=== PATIENT | female | born 1955 | race African-American/Black ===

== ENCOUNTER 2016-07-24 14:59 | Emergency (ER) | payer BC ==
[~2016-07-24] VITALS: Ht 162.6 cm; Wt 79.4 kg
[~2016-07-24 14:59] MED LIST: CALC-98 PO; LEVO50TA PO
[2016-07-24] MEDS ORDERED: IV NORMAL SALINE 500ML BAG 500 ML IV ONE (16:00)
--- NOTE | 2016-07-24 16:05 | PHYS DOC ---
Past Medical History Past Medical History: Hypothyroid Past Surgical History: Tubal ligation Alcohol Use: None Drug Use: None Adult General Chief Complaint Chief Complaint: OTHER COMPLAINTS HPI HPI Patient is a 61 year old female who presents with complaint of extremity heaviness and racing heartbeat. Patient states that the extremity heaviness has been going on for the past 2 days. Patient states that she feels numbness and heaviness in her bilateral forearms and in her left lower extremity. Patient states that currently the symptoms have resolved. Patient states that approximately 1 hour prior to arrival while she was walking she suddenly felt like she was having a very fast heart rate. The patient came to the emergency department for evaluation. Patient denies any pain. The patient is not having any fevers or shortness of breath and denies nausea or vomiting. Patient denies any previous history of similar symptoms. Patient has not taken any medications for her symptoms. Patient has history of hypothyroidism. Patient denies any other significant past medical history. Review of Systems Review of Systems Constitutional: Denies fever or chills [] Eyes: Denies change in visual acuity, redness, or eye pain [] HENT: Denies nasal congestion or sore throat [] Respiratory: Denies cough or shortness of breath [] Cardiovascular: Fast heart rate, denies chest pain [] GI: Denies abdominal pain, nausea, vomiting, bloody stools or diarrhea [] : Denies dysuria or hematuria [] Musculoskeletal: Denies back pain or joint pain [] Integument: Denies rash or skin lesions [] Neurologic: "Extremity heaviness," Denies headache, focal weakness [] Endocrine: Denies polyuria or polydipsia [] Current Medications Current Medications Current Medications Medications (Trade) Dose Ordered Sig/Shilo Start Time Stop Time Status Last Admin Dose Admin Sodium Chloride (Iv Sodium Chloride 0.9% 500ml Bag) 500 ml @ 500 mls/hr 1X ONCE 07/24/16 16:00 07/24/16 16:59 DC 07/24/16 16:24 500 MLS/HR Allergies Allergies Allergies Coded Allergies Type Severity Reaction Last Updated Verified clindamycin Allergy Intermediate Itching 07/24/16 Yes fluticasone Allergy Intermediate Itching 07/24/16 Yes Physical Exam Physical Exam Constitutional: Well developed, well nourished, no acute distress, non-toxic appearance. [] HENT: Normocephalic, atraumatic, bilateral external ears normal, oropharynx moist, no oral exudates, nose normal. [] Eyes: PERRLA, EOMI, conjunctiva normal, no discharge. [] Neck: Normal range of motion, no tenderness, supple, no stridor. [] Cardiovascular:Heart rate regular rhythm, no murmur [] Lungs & Thorax: Bilateral breath sounds clear to auscultation [] Abdomen: Bowel sounds normal, soft, no tenderness, no masses, no pulsatile masses. [] Skin: Warm, dry, no erythema, no rash. [] Back: No tenderness, no CVA tenderness. [] Extremities: No tenderness, no cyanosis, no clubbing, ROM intact, no edema. [] Neurologic: Alert and oriented X 3, normal motor function, normal sensory function, no focal deficits noted. [] Current Patient Data Vital Signs Vital Signs Date Time Temp Pulse Resp B/P Pulse Ox O2 Delivery O2 Flow Rate FiO2 07/24/16 18:48 72 18 118/76 97 Room Air 07/24/16 15:22 97.8 97.8 Lab Values Laboratory Tests Test 07/24/16 15:34 07/24/16 16:02 White Blood Count 4.4x10^3/uL (4.0-11.0) Red Blood Count 3.46x10^6/uL (3.50-5.40) L Hemoglobin 10.9g/dL (12.0-15.5) L Hematocrit 33.0% (36.0-47.0) L Mean Corpuscular Volume 95fL (79-100) Mean Corpuscular Hemoglobin 31pg (25-35) Mean Corpuscular Hemoglobin Concent 33g/dL (31-37) Red Cell Distribution Width 13.0% (11.5-14.5) Platelet Count 194x10^3/uL (140-400) Neutrophils (%) (Auto) 43% (31-73) Lymphocytes (%) (Auto) 47% (24-48) Monocytes (%) (Auto) 9% (0-9) Eosinophils (%) (Auto) 1% (0-3) Basophils (%) (Auto) 1% (0-3) Neutrophils # (Auto) 1.9x10^3uL (1.8-7.7) Lymphocytes # (Auto) 2.1x10^3/uL (1.0-4.8) Monocytes # (Auto) 0.4x10^3/uL (0.0-1.1) Eosinophils # (Auto) 0.0x10^3/uL (0.0-0.7) Basophils # (Auto) 0.0x10^3/uL (0.0-0.2) Sodium Level 146mmol/L (136-145) H Potassium Level 3.4mmol/L (3.5-5.1) L Chloride Level 108mmol/L (98-107) H Carbon Dioxide Level 32mmol/L (21-32) Anion Gap 6 (6-14) Blood Urea Nitrogen 11mg/dL (7-20) Creatinine 0.9mg/dL (0.6-1.0) Estimated GFR (Cockcroft-Gault) 77.3 Glucose Level 84mg/dL (70-99) Calcium Level 9.0mg/dL (8.5-10.1) Magnesium Level 2.0mg/dL (1.8-2.4) Urine Collection Type Unknown Urine Color Yellow Urine Clarity Clear Urine pH 7.0 Urine Specific [place] <=1.005 Urine Protein Negativemg/dL (NEG-TRACE) Urine Glucose (UA) Negativemg/dL (NEG) Urine Ketones (Stick) Negativemg/dL (NEG) Urine Blood Negative (NEG) Urine Nitrite Negative (NEG) Urine Bilirubin Negative (NEG) Urine Urobilinogen Dipstick 0.2mg/dL (0.2 mg/dL) Urine Leukocyte Esterase Negative (NEG) Urine RBC 0/HPF (0-2) Urine WBC 0/HPF (0-4) Urine Squamous Epithelial Cells Few/LPF Urine Bacteria 0/HPF (0-FEW) Laboratory Tests 07/24/16 15:34 Laboratory Tests 07/24/16 15:34 EKG EKG Interpreted by me: Heart rate 65, sinus rhythm, normal intervals, normal axis, no acute ST/T-wave abnormalities present [] Radiology/Procedures Radiology/Procedures Not performed [] Course & Med Decision Making Course & Med Decision Making Pertinent Labs and Imaging studies reviewed. (See chart for details) Patient was given IV fluids in the emergency department. Patient did not display any evidence of ectopy or dysrhythmia while in the emergency department. The patient's symptoms do not appear life-threatening at this time. I did recommend follow-up with Dr. Franz of cardiology in the next 3-5 days for reevaluation. Advised return emergency department for any worsening symptoms. Patient voiced understanding and in agreement with treatment plan. Dragon Disclaimer Dragon Disclaimer This electronic medical record was generated, in whole or in part, using a voice recognition dictation system. Departure Departure Impression: Primary Impression: Dehydration Disposition: 01 HOME, SELF-CARE Condition: IMPROVED Referrals: SERJIO ALVARADO MD (PCP) CESARIO FRANZ MD Patient Instructions: Dehydration, Adult Additional Instructions: Your workup today did not show any life-threatening causes for your symptoms. You were treated for dehydration. It is recommended however that you follow-up with Dr. Franz of cardiology in the next 3-5 days for further evaluation. If you experience any recurrence of symptoms including fast heart rate, or you develop chest pain, shortness of breath, nausea, or vomiting, please return to the emergency department for reevaluation. CAMERON CALDWELL MD Jul 24, 2016 16:05
--- NOTE | 2016-07-24 16:06 | EKG ---
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
[2016-07-24 16:40] LABS: BASO % 1 % (0-3); EOS % 1 % (0-3); HEMOGLOBIN 10.9 g/dL (12.0-15.5); LYMPH # 2.1 x10^3/uL (1.0-4.8); LYMPH % 47 % (24-48); MEAN CORPUSCULAR HEMOGLOBIN 31 pg (25-35); MEAN CORPUSCULAR HGB CONC 33 g/dL (31-37); MEAN CORPUSCULAR VOLUME 95 fL (79-100); MONO % 9 % (0-9); NEUT % 43 % (31-73); PLATELET COUNT 194 x10^3/uL (140-400); RED BLOOD COUNT 3.46 x10^6/uL (3.50-5.40); WHITE BLOOD COUNT 4.4 x10^3/uL (4.0-11.0)
[2016-07-24 16:47] LABS: CREATININE 0.9 mg/dL (0.6-1.0); GFR 77.3; POTASSIUM 3.4 mmol/L (3.5-5.1)
[2016-07-24 17:15] LABS: BILIRUBIN,URINE NEGATIVE (NEG); GLUCOSE,URINE NEGATIVE (NEG); NITRITE,URINE NEGATIVE (NEG); PROTEIN,URINE NEGATIVE (NEG-TRACE); UROBILINOGEN,URINE 0.2 mg/dL (0.2 mg/dL)
[2016-07-24 18:23] LABS: BACTERIA,URINE 0 /HPF (0-FEW); RBC,URINE 0 /HPF (0-2); SQUAMOUS EPITHELIAL CELL,UR FEW /LPF; WBC,URINE 0 /HPF (0-4)
[2016-07-24 18:48] VITALS: BP 118/76
== END 2016-07-24 18:55 | disposition home or self-care (01) ==
LOC: ER 14:59
DX: E86.0 Dehydration (principal); R00.0 Tachycardia, unspecified; E03.9 Hypothyroidism, unspecified; Z98.51 Tubal ligation status; Z88.1 Allergy status to other antibiotic agents; Z88.8 Allergy status to other drugs, medicaments and biological substances
CPT/HCPCS: 36415; 80048; 81001; 83735; 85027; 93005; 96360; 99285; J7040

== ENCOUNTER 2017-07-27 14:57 | Emergency (ER) | payer OTHER ==
[2017-07-27 15:21] LABS: ADD MAN DIFF? NO
[2017-07-27 15:31] LABS: BASO # 0.1 x10^3/uL (0.0-0.2); BASO % 1 % (0-3); EOS % 1 % (0-3); HEMATOCRIT 36.2 % (36.0-47.0); HEMOGLOBIN 12.1 g/dL (12.0-15.5); LYMPH # 2.8 x10^3/uL (1.0-4.8); LYMPH % 41 % (24-48); MEAN CORPUSCULAR HEMOGLOBIN 32 pg (25-35); MEAN CORPUSCULAR HGB CONC 34 g/dL (31-37); MEAN CORPUSCULAR VOLUME 96 fL (79-100); MONO # 0.7 x10^3/uL (0.0-1.1); MONO % 10 % (0-9); NEUT # 3.3 x10^3uL (1.8-7.7); NEUT % 48 % (31-73); PLATELET COUNT 243 x10^3/uL (140-400); RED BLOOD COUNT 3.76 x10^6/uL (3.50-5.40); RED CELL DISTRIBUTION WIDTH 13.2 % (11.5-14.5); WHITE BLOOD COUNT 6.9 x10^3/uL (4.0-11.0)
[2017-07-27] MEDS: IV NORMAL SALINE 1000ML BAG 1,000 ML IV ×4 (15:31→16:04)
[2017-07-27 15:52] LABS: ANION GAP 11 (6-14); BLOOD UREA NITROGEN 13 mg/dL (7-20); CALCIUM 9.7 mg/dL (8.5-10.1); CARBON DIOXIDE 26 mmol/L (21-32); CHLORIDE 101 mmol/L (98-107); CREATININE 0.8 mg/dL (0.6-1.0); GFR 88.2; GLUCOSE 95 mg/dL (70-99); POTASSIUM 4.1 mmol/L (3.5-5.1); SODIUM 138 mmol/L (136-145)
[2017-07-27 16:02] LABS: TROPONINI < 0.017 ng/mL (0.000-0.055)
[2017-07-27 16:28] LABS: THYROID STIM HORMONE (TSH) 3.831 uIU/mL (0.358-3.74)
== END 2017-07-27 17:24 | disposition home or self-care (01) ==
LOC: ER 14:57
DX: R00.2 Palpitations (principal); E03.9 Hypothyroidism, unspecified; Z88.1 Allergy status to other antibiotic agents
CPT/HCPCS: 36415; 71045; 80048; 84443; 84484; 85025; 93005; 99285; J7030

== ENCOUNTER 2018-02-02 11:11 | Emergency (ER) | payer OTHER ==
[~2018-02-02] VITALS: Ht 162.6 cm; Wt 79.4 kg
[2018-02-02 11:37] VITALS: BP 131/65
[2018-02-02 11:52] LABS: BASO % 1 % (0-3); EOS % 0 % (0-3); HEMATOCRIT 37.7 % (36.0-47.0); HEMOGLOBIN 12.8 g/dL (12.0-15.5); LYMPH # 1.3 x10^3/uL (1.0-4.8); LYMPH % 27 % (24-48); MEAN CORPUSCULAR HEMOGLOBIN 33 pg (25-35); MEAN CORPUSCULAR HGB CONC 34 g/dL (31-37); MEAN CORPUSCULAR VOLUME 96 fL (79-100); MONO # 0.3 x10^3/uL (0.0-1.1); MONO % 6 % (0-9); NEUT # 3.1 x10^3uL (1.8-7.7); NEUT % 66 % (31-73); PLATELET COUNT 240 x10^3/uL (140-400); RED BLOOD COUNT 3.92 x10^6/uL (3.50-5.40); WHITE BLOOD COUNT 4.7 x10^3/uL (4.0-11.0)
--- NOTE | 2018-02-02 12:04 | RAD ---
Indication:left eye twitching and lip numbness x1hour TECHNIQUE: CT head without IV contrast COMPARISON:None FINDINGS: No pathologic extra-axial or intra-axial fluid collection. The ventricles and basal cisterns are within normal limits. No acute intracranial bleed. No focal loss of peters-white differentiation. Visualized orbits within normal limits. No suspicious bony lesions. Visualized paranasal sinuses and mastoid air cells are clear. IMPRESSION: No acute intracranial process. If concern for acute ischemic stroke is high, please consider MRI brain. Electronically signed by: Hitesh Jacobs DO (02/02/2018 12:00 PM) [facility]
[2018-02-02 12:11] LABS: CALCIUM 9.7 mg/dL (8.5-10.1); GFR 68.2; POTASSIUM 4.1 mmol/L (3.5-5.1)
[2018-02-02 12:35] LABS: FREE T4 0.85 ng/dL (0.76-1.46); THYROID STIM HORMONE (TSH) 4.339 uIU/mL (0.358-3.74)
--- NOTE | 2018-02-02 12:56 | PHYS DOC ---
Past Medical History Past Medical History: Anemia, Hypothyroid, Other Past Surgical History: Tubal ligation, Other Additional Past Surgical Histo: cone Alcohol Use: None Drug Use: None Adult General Chief Complaint Chief Complaint: OTHER COMPLAINTS HPI HPI Patient is a 62 year old female who presents with facial numbness. The patient states she was at rest a couple hours prior to presentation. She was reading a book. She had sudden onset of some sort of twitching of the left lower eyelid. This was followed by a numbness sensation over the left side of her face and left upper lip. The sensations only lasted a few minutes. The patient became very stressed out. She states her heart rate felt like it was very fast. Her symptoms did resolve and route to the emergency department. She has no other history of similar symptoms. She did not have chest pain, palpitations, or feel short of breath. Review of Systems Review of Systems Constitutional: Denies fever or chills Eyes: Denies change in visual acuity HENT: Denies nasal congestion or sore throat Respiratory: Denies cough or shortness of breath Cardiovascular: No additional information GI: Denies abdominal pain, nausea : Denies dysuria or hematuria Musculoskeletal: Denies back pain Integument: Denies rash or skin lesions Neurologic: Denies headache Endocrine: Denies polyuria All other systems were reviewed and found to be within normal limits, except as documented in this note. Current Medications Current Medications Current Medications Medications (Trade) Dose Ordered Sig/Shilo Start Time Stop Time Status Last Admin Dose Admin Aspirin (Frances Aspirin) 325 mg 1X ONCE 02/02/18 13:00 02/02/18 13:01 Allergies Allergies Allergies Coded Allergies Type Severity Reaction Last Updated Verified clindamycin Allergy Intermediate Itching 07/24/16 Yes fluticasone Allergy Intermediate Itching 07/24/16 Yes Physical Exam Physical Exam Constitutional: Well developed, well nourished, no acute distress, non-toxic appearance. [] HENT: Normocephalic, atraumatic, bilateral external ears normal, oropharynx moist, no oral exudates, nose normal. [] Eyes: PERRLA, EOMI, conjunctiva normal, no discharge. [] Neck: Normal range of motion, no tenderness, supple, no stridor. [] Cardiovascular:Heart rate regular rhythm, no murmur [] Lungs & Thorax: Bilateral breath sounds clear to auscultation [] Abdomen: Bowel sounds normal, soft, no tenderness, no masses, no pulsatile masses. [] Skin: Warm, dry, no erythema, no rash. [] Back: No tenderness, no CVA tenderness. [] Extremities: No tenderness, no cyanosis, no clubbing, ROM intact, no edema. [] Neurologic: Alert and oriented X 3, normal motor function, normal sensory function, no focal deficits noted. [] Psychologic: Affect normal, judgement normal, mood normal. [] Current Patient Data Vital Signs Vital Signs Date Time Temp Pulse Resp B/P (MAP) Pulse Ox O2 Delivery O2 Flow Rate FiO2 02/02/18 11:37 98.6 78 16 131/65 (87) 100 Room Air 98.6 Lab Values Laboratory Tests Test 02/02/18 11:30 White Blood Count 4.7 x10^3/uL (4.0-11.0) Red Blood Count 3.92 x10^6/uL (3.50-5.40) Hemoglobin 12.8 g/dL (12.0-15.5) Hematocrit 37.7 % (36.0-47.0) Mean Corpuscular Volume 96 fL (79-100) Mean Corpuscular Hemoglobin 33 pg (25-35) Mean Corpuscular Hemoglobin Concent 34 g/dL (31-37) Red Cell Distribution Width 13.0 % (11.5-14.5) Platelet Count 240 x10^3/uL (140-400) Neutrophils (%) (Auto) 66 % (31-73) Lymphocytes (%) (Auto) 27 % (24-48) Monocytes (%) (Auto) 6 % (0-9) Eosinophils (%) (Auto) 0 % (0-3) Basophils (%) (Auto) 1 % (0-3) Neutrophils # (Auto) 3.1 x10^3uL (1.8-7.7) Lymphocytes # (Auto) 1.3 x10^3/uL (1.0-4.8) Monocytes # (Auto) 0.3 x10^3/uL (0.0-1.1) Eosinophils # (Auto) 0.0 x10^3/uL (0.0-0.7) Basophils # (Auto) 0.0 x10^3/uL (0.0-0.2) Sodium Level 138 mmol/L (136-145) Potassium Level 4.1 mmol/L (3.5-5.1) Chloride Level 101 mmol/L (98-107) Carbon Dioxide Level 29 mmol/L (21-32) Anion Gap 8 (6-14) Blood Urea Nitrogen 13 mg/dL (7-20) Creatinine 1.0 mg/dL (0.6-1.0) Estimated GFR (Cockcroft-Gault) 68.2 Glucose Level 94 mg/dL (70-99) Calcium Level 9.7 mg/dL (8.5-10.1) Troponin I Quantitative < 0.017 ng/mL (0.000-0.055) Thyroid Stimulating Hormone (TSH) 4.339 uIU/mL (0.358-3.74) H Free Thyroxine 0.85 ng/dL (0.76-1.46) Laboratory Tests 02/02/18 11:30 Laboratory Tests 02/02/18 11:30 EKG EKG NSR. No STEMI Interpretation Time: 11:45 Radiology/Procedures Radiology/Procedures head ct: negative for acute findings Course & Med Decision Making Course & Med Decision Making Pertinent Labs and Imaging studies reviewed. (See chart for details) Patient was evaluated in the emergency department. Her neurologic exam was normal. Her symptoms had entirely resolved. Her workup is essentially negative. Her EKG is normal. The troponin is not elevated. The rest of her labs are normal. Her CT scan did not reveal acute findings. I strongly recommended to this patient that she be admitted to the hospital so she can go undergo MRI and echocardiogram and neurology consultation. The patient however did not want to be admitted. I advised her that the only way to definitively rule out a stroke was with this workup. The patient states she will follow-up with her primary care doctor on Sunday and pursue outpatient additional evaluation. The patient is discharged to home. She is advised to return to the emergency department immediately if she develops any additional symptoms. Patient is agreeable to the plan of care. She is accompanied by her family member today who also witnessed the conversation. Dragon Disclaimer Dragon Disclaimer This electronic medical record was generated, in whole or in part, using a voice recognition dictation system. Departure Departure Referrals: CYNTHIA RESENDIZ DO (PCP) CONCHITA VALENTINE DO Feb 02, 2018 12:56
[2018-02-02] MEDS ORDERED: ASPIRIN 325 MG TABLET PO ONE (13:00)
--- NOTE | 2018-02-02 13:44 | EKG ---
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
== END 2018-02-02 13:13 | disposition home or self-care (01) ==
LOC: ER 11:11
DX: R20.0 Anesthesia of skin (principal); E03.9 Hypothyroidism, unspecified; Z98.51 Tubal ligation status; Z88.1 Allergy status to other antibiotic agents; Z88.8 Allergy status to other drugs, medicaments and biological substances
CPT/HCPCS: 36415; 70450; 80048; 84439; 84443; 84484; 85025; 93005; 99285-25

== ENCOUNTER 2019-02-17 12:05 | Emergency (ER) | payer OTHER ==
[~2019-02-17] VITALS: Ht 162.6 cm; Wt 78.5 kg
[2019-02-17 12:41] LABS: BASO % 1 % (0-3); EOS % 0 % (0-3); HEMATOCRIT 35.1 % (36.0-47.0); LYMPH # 2.4 x10^3/uL (1.0-4.8); LYMPH % 49 % (24-48); MEAN CORPUSCULAR HEMOGLOBIN 32 pg (25-35); MEAN CORPUSCULAR HGB CONC 34 g/dL (31-37); MEAN CORPUSCULAR VOLUME 95 fL (79-100); MONO # 0.4 x10^3/uL (0.0-1.1); MONO % 8 % (0-9); NEUT # 2.1 x10^3/uL (1.8-7.7); NEUT % 42 % (31-73); PLATELET COUNT 203 x10^3/uL (140-400); RED CELL DISTRIBUTION WIDTH 12.4 % (11.5-14.5)
[2019-02-17 12:52] LABS: CALCIUM 9.4 mg/dL (8.5-10.1); POTASSIUM 3.8 mmol/L (3.5-5.1)
[2019-02-17 12:54] LABS: PROTHROMBIN TIME PATIENT 13.4 SEC (11.7-14.0)
[2019-02-17 12:59] LABS: ALBUMIN 3.9 g/dL (3.4-5.0); ALBUMIN/GLOBULIN RATIO 0.9 (1.0-1.7); TOTAL BILIRUBIN 0.5 mg/dL (0.2-1.0); TOTAL PROTEIN 8.3 g/dL (6.4-8.2)
[2019-02-17 13:04] LABS: BILIRUBIN,URINE NEGATIVE (NEG); CLARITY,URINE CLEAR; COLOR,URINE YELLOW; NITRITE,URINE NEGATIVE (NEG); PH,URINE 6.5; PROTEIN,URINE NEGATIVE (NEG-TRACE); UROBILINOGEN,URINE 0.2 mg/dL (0.2 mg/dL)
[2019-02-17 13:15] LABS: SQUAMOUS EPITHELIAL CELL,UR MOD /LPF
[2019-02-17 13:16] LABS: BACTERIA,URINE 0 /HPF (0-FEW); RBC,URINE 0 /HPF (0-2)
--- NOTE | 2019-02-17 13:26 | RAD ---
CT HEAD WO CONTRAST Indication: Possible right facial droop Exposure: One or more of the following individualized dose reduction techniques were utilized for this examination: 1. Automated exposure control 2. Adjustment of the mA and/or kV according to patient size 3. Use of iterative reconstruction technique. Technique: Standard imaging without intravenous contrast. Comparison with 02/02/2018 FINDINGS: No acute intracranial hemorrhage, mass effect, midline shift or abnormal extra-axial fluid collection. Bartholomew-white matter distinction is maintained. Ventricles and sulci are symmetric. The partially seen orbits appear unremarkable. No significant scalp swelling. Partially visualized sinuses are clear. No acute skull abnormality. IMPRESSION: No evidence of acute intracranial hemorrhage. Electronically signed by: Jad Jaeger MD (02/17/2019 1:23 PM) [facility]
--- NOTE | 2019-02-17 14:29 | RAD ---
AP view of the chest. Comparison: Chest radiograph dated 07/27/2017. Indication: Chest pain Findings: Normal lung volume. No focal airspace disease. Normal pulmonary vasculature. No pleural effusion. No pneumothorax. The cardiomediastinal silhouette is normal in appearance. The great vessels are normal. No acute osseous abnormality. Impression: 1. No acute cardiopulmonary process. Electronically signed by: Bhaskar Valencia MD (02/17/2019 2:27 PM) [facility]
[2019-02-17 15:25] VITALS: BP 109/65
--- NOTE | 2019-02-17 15:29 | RAD ---
Left lower extremity venous doppler ultrasound Indication: Leg swelling Technique: Color Doppler, grayscale, and spectral waveform analysis is used to evaluate the left femoral and popliteal veins. Findings: No evidence of deep venous thrombosis. Normal response to augmentation, normal compressibility and normal phasicity is demonstrated. Visualized calf veins are patent. Impression: Negative for deep venous thrombosis Electronically signed by: Jad Jaeger MD (02/17/2019 3:26 PM) [facility]
--- NOTE | 2019-02-17 16:16 | PHYS DOC ---
Past Medical History Past Medical History: Anemia, Hypothyroid, Other Past Surgical History: Tubal ligation, Other Additional Past Surgical Histo: cone Alcohol Use: None Drug Use: None Adult General Chief Complaint Chief Complaint: NEURO SYMPTOMS/DEFICITS HPI HPI Patient is a 63 year old female came in for multiple complaints initially primary complaint was that of palpitations felt like her heart was racing earlier in the day rectally 5 AM she felt that is sore when away within a came back and she was very concerned so she came to the ER for evaluation in addition she thought she noticed some numbness of the left side of her lower lip that seems to gone away then she also was wondering if maybe her right lip looked funny. No speech difficulty no numbness tingling or weakness in the lower extremities or the upper extremities she also is concerned that she felt like she could see the veins in her wrist and elbow intermittently and she also was worried because it seemed like her left leg was more swollen than usual no headache the symptoms actually have been really sort of intermittent in nature but they seem to get worse this morning so she came to the ER for evaluation she was also concerned because her Synthroid dose was changed about a month ago and she wanted to get her thyroid level checked out as well. No chest pain just the palpitations like her heart was racing earlier in the day around 5 AM Review of Systems Review of Systems Constitutional: Denies fever or chills [] Eyes: Denies change in visual acuity, redness, or eye pain [] HENT: Denies nasal congestion or sore throat [] Musculoskeletal: Denies back pain or joint pain [] Integument: Denies rash or skin lesions [] Neurologic: All other systems were reviewed and found to be within normal limits, except as documented in this note. Current Medications Current Medications Current Medications Medications (Trade) Dose Ordered Sig/Shilo Start Time Stop Time Status Last Admin Dose Admin Lorazepam (Ativan Inj) 1 mg 1X ONCE 02/17/19 13:00 02/17/19 13:01 DC 02/17/19 13:20 1 MG Allergies Allergies Allergies Coded Allergies Type Severity Reaction Last Updated Verified clindamycin Allergy Intermediate Itching 07/24/16 Yes fluticasone Allergy Intermediate Itching 07/24/16 Yes Physical Exam Physical Exam Constitutional: Well developed, well nourished, no acute distress, non-toxic appearance. [] HENT: Normocephalic, atraumatic, bilateral external ears normal, oropharynx moist, no oral exudates, nose normal. [] Eyes: PERRLA, EOMI, conjunctiva normal, no discharge. [] Neck: Normal range of motion, no tenderness, supple, no stridor. [] Cardiovascular:Heart rate regular rhythm, no murmur [] Lungs & Thorax: Bilateral breath sounds clear to auscultation [] Abdomen: Bowel sounds normal, soft, no tenderness, no masses, no pulsatile masses. [] Skin: Warm, dry, no erythema, no rash. [] Back: No tenderness, no CVA tenderness. [] Extremities: No tenderness, no cyanosis, no clubbing, ROM intact, there is possible trace left greater than right lower extremity edema Neurologic: Alert and oriented X 3, normal motor function, normal sensory func tion, no focal deficits noted. []No facial droop is identified Psychologic: Affect normal, judgement normal, mood anxiety noted Current Patient Data Vital Signs Vital Signs Date Time Temp Pulse Resp B/P (MAP) Pulse Ox O2 Delivery O2 Flow Rate FiO2 02/17/19 15:25 72 16 100 02/17/19 12:25 98.4 137/72 (93) Room Air 98.4 Lab Values Laboratory Tests Test 02/17/19 12:29 02/17/19 12:34 02/17/19 12:55 Glucose (Fingerstick) 104 mg/dL (70-99) H White Blood Count 5.0 x10^3/uL (4.0-11.0) Red Blood Count 3.70 x10^6/uL (3.50-5.40) Hemoglobin 12.0 g/dL (12.0-15.5) Hematocrit 35.1 % (36.0-47.0) L Mean Corpuscular Volume 95 fL (79-100) Mean Corpuscular Hemoglobin 32 pg (25-35) Mean Corpuscular Hemoglobin Concent 34 g/dL (31-37) Red Cell Distribution Width 12.4 % (11.5-14.5) Platelet Count 203 x10^3/uL (140-400) Neutrophils (%) (Auto) 42 % (31-73) Lymphocytes (%) (Auto) 49 % (24-48) H Monocytes (%) (Auto) 8 % (0-9) Eosinophils (%) (Auto) 0 % (0-3) Basophils (%) (Auto) 1 % (0-3) Neutrophils # (Auto) 2.1 x10^3/uL (1.8-7.7) Lymphocytes # (Auto) 2.4 x10^3/uL (1.0-4.8) Monocytes # (Auto) 0.4 x10^3/uL (0.0-1.1) Eosinophils # (Auto) 0.0 x10^3/uL (0.0-0.7) Basophils # (Auto) 0.0 x10^3/uL (0.0-0.2) Prothrombin Time 13.4 SEC (11.7-14.0) Prothrombin Time INR 1.1 (0.8-1.1) Sodium Level 136 mmol/L (136-145) Potassium Level 3.8 mmol/L (3.5-5.1) Chloride Level 98 mmol/L (98-107) Carbon Dioxide Level 28 mmol/L (21-32) Anion Gap 10 (6-14) Blood Urea Nitrogen 13 mg/dL (7-20) Creatinine 1.0 mg/dL (0.6-1.0) Estimated GFR (Cockcroft-Gault) 68.0 BUN/Creatinine Ratio 13 (6-20) Glucose Level 119 mg/dL (70-99) H Calcium Level 9.4 mg/dL (8.5-10.1) Total Bilirubin 0.5 mg/dL (0.2-1.0) Aspartate Amino Transferase (AST) 25 U/L (15-37) Alanine Aminotransferase (ALT) 18 U/L (14-59) Alkaline Phosphatase 127 U/L (46-116) H Troponin I Quantitative < 0.017 ng/mL (0.000-0.055) Total Protein 8.3 g/dL (6.4-8.2) H Albumin 3.9 g/dL (3.4-5.0) Albumin/Globulin Ratio 0.9 (1.0-1.7) L Thyroid Stimulating Hormone (TSH) 1.193 uIU/mL (0.358-3.74) Urine Collection Type Unknown Urine Color Yellow Urine Clarity Clear Urine pH 6.5 Urine Specific [place] <=1.005 Urine Protein Negative mg/dL (NEG-TRACE) Urine Glucose (UA) Negative mg/dL (NEG) Urine Ketones (Stick) Negative mg/dL (NEG) Urine Blood Negative (NEG) Urine Nitrite Negative (NEG) Urine Bilirubin Negative (NEG) Urine Urobilinogen Dipstick 0.2 mg/dL (0.2 mg/dL) Urine Leukocyte Esterase Trace (NEG) Urine RBC 0 /HPF (0-2) Urine WBC 1-4 /HPF (0-4) Urine Squamous Epithelial Cells Mod /LPF Urine Renal Epithelial Cells Few /LPF Urine Bacteria 0 /HPF (0-FEW) Laboratory Tests 02/17/19 12:34 Laboratory Tests 02/17/19 12:34 EKG EKG []EKG shows a normal sinus rhythm with rate of 77 no acute distress changes noted interpreted by me the time of encounter no STEMI Radiology/Procedures Radiology/Procedures [] Comparison with 02/02/2018 FINDINGS: No acute intracranial hemorrhage, mass effect, midline shift or abnormal extra-axial fluid collection. Bartholomew-white matter distinction is maintained. Ventricles and sulci are symmetric. The partially seen orbits appear unremarkable. No significant scalp swelling. Partially visualized sinuses are clear. No acute skull abnormality. IMPRESSION: No evidence of acute intracranial hemorrhage. Electronically signed by: Jad Jaeger MD (02/17/2019 1:23 PM) [facility] DICTATED and SIGNED BY: JAD JAEGER MD DATE: 02/17/19 1323 Impressions: Findings: No evidence of deep venous thrombosis. Normal response to augmentation, normal compressibility and normal phasicity is demonstrated. Visualized calf veins are patent. Impression: Negative for deep venous thrombosis Electronically signed by: Jad Jaeger MD (02/17/2019 3:26 PM) [facility] DICTATED and SIGNED BY: JAD JAEGER MD DATE: 02/17/19 1526 dication: Chest pain Findings: Normal lung volume. No focal airspace disease. Normal pulmonary vasculature. No pleural effusion. No pneumothorax. The cardiomediastinal silhouette is normal in appearance. The great vessels are normal. No acute osseous abnormality. Impression: 1. No acute cardiopulmonary process. Electronically signed by: Bhaskar Valencia MD (02/17/2019 2:27 PM) [facility] DICTATED and SIGNED BY: BHASKAR VALENCIA MD DATE: 02/17/19 1427 Course & Med Decision Making Course & Med Decision Making Pertinent Labs and Imaging studies reviewed. (See chart for details) []63-year-old female was presenting with chief complaint of multiple complaints primarily that of palpitations but also was worried about some transient tingling of her left lower lip and also some apparent swelling of her right upper extremity and her left lower extremity. She does not have a stroke syndrome on clinical examination screening head CT was negative acute EKG and troponin are negative left lower extremity ultrasound was negative for DVT patient is very well-appearing does appear to have some anxiety she felt better after Ativan we checked a TSH at her request and that was also within normal limits recommended follow-up with primary care doctor for further evaluation and treatment Dragon Disclaimer Dragon Disclaimer This electronic medical record was generated, in whole or in part, using a voice recognition dictation system. Departure Departure Impression: Primary Impression: Palpitations Additional Impression: Anxiety Disposition: HOME, SELF-CARE Condition: STABLE Patient Instructions: Palpitations, [id number] NIHSS Stroke Scale NIH Stroke Scale: NIH Stroke Scale Response (Comments) Value Level of Consciousness: 0 Alert/Responsive 0 LOC Questions: 0 Answers both correctly 0 LOC Commands: 0 Performs both tasks 0 Best Gaze: 0 Normal 0 Visual: 0 No visual loss 0 Facial Palsy: 0 Normal, symmetrical (patient of note h as symmetric lower face and upper face muscles bilaterally. ) 0 Motor - Left Arm 0 No drift 0 Motor - Right Arm 0 No drift 0 Motor - Left Leg 0 No drift 0 Motor: Right Leg 0 No drift 0 Limb Ataxia: 0 Absent 0 Sensory: 0 No loss 0 Best Language: 0 Normal 0 Dysathria: 0 Normal 0 Extinction and Inattention: 0 Normal 0 Total 0 Problem Qualifiers BELEM COSTA MD Feb 17, 2019 16:16
--- NOTE | 2019-02-17 17:01 | EKG ---
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
== END 2019-02-17 15:27 | disposition home or self-care (01) ==
LOC: ER 12:05
DX: R00.2 Palpitations (principal); F41.9 Anxiety disorder, unspecified; R60.0 Localized edema; E03.9 Hypothyroidism, unspecified; Z98.51 Tubal ligation status; Z88.1 Allergy status to other antibiotic agents; Z88.8 Allergy status to other drugs, medicaments and biological substances
CPT/HCPCS: 36415; 70450; 71045; 80053; 81001; 82962; 84443; 84484; 85025; 85610; 87086; 93005; 93971; 96374; 99285; J2060